=== PATIENT | female | born 1995 | race Caucasian/White ===

== ENCOUNTER 2025-05-29 14:35 | Emergency (ER) | payer MEDICAID, OTHER ==
[2025-05-29 15:28] LABS: #Basophils 0.07 10x3/uL (0.0-0.2); #Eosinophils 0.28 10x3/uL (0.0-0.5); #Monocytes 0.71 10x3/uL (0.0-1.1); #Neutrophils 7.30 10x3/uL (1.5-8.4); %Basophils 0.6 % (0.0-2.0); %Eosinophils 2.4 % (0.0-6.0); %Lymphocytes 26.6 % (18.0-47.0); %Monocytes 6.2 % (0.0-10.0); %Neutrophils 63.9 % (40.0-75.0); Hematocrit 39.3 % (34.9-44.5); Hemoglobin 13.2 g/dL (12.0-15.5); Mean Corpuscular Hemoglobin 29.8 pg (27.0-33.0); Mean Corpuscular Volume 88.7 fL (81.6-98.3); Platelet Count 360 10x3/uL (150-450); Red Blood Cell (RBC) Count 4.43 10x6/uL (3.90-5.03); White Blood Cell (WBC) Count 11.45 10x3/uL (3.5-10.5)
[2025-05-29 15:58] LABS: ALT (SGPT) 20 U/L (Less than 34); AST (SGOT) 17 U/L (11-34); Albumin 4.4 g/dL (3.1-4.5); Alkaline Phosphatase 58 U/L (40-110); Anion Gap 11 mmol/L (10-20); BUN (Urea Nitrogen) 7 mg/dL (7.0-18.7); Bilirubin, Total 0.2 mg/dL (0.3-1.2); Calc. Creatinine Clearance 0 mL/min (70-130); Calcium 9.0 mg/dL (7.8-10.44); Carbon Dioxide 24 mmol/L (22-29); Chloride 107 mmol/L (98-107); Globulin 2.7 g/dL (2.4-3.5); Glucose 100 mg/dL (70-105); Potassium 4.4 mmol/L (3.5-5.1); Sodium 138 mmol/L (136-145)
[2025-05-29 17:44] LABS: Glucose, Urine (Dipstick) Normal (Negative); Leukocyte Negative (Negative); Protein, Urine (Dipstick) Negative (Neg-Trace); Specific Gravity, Urine 1.020 (1.005-1.030)
[2025-05-29 17:57] LABS: Bacteria/HPF None Seen HPF (None Seen); CAUTI Indications for Culture Pregnancy; RBC/HPF None Seen HPF (0-3); WBC/HPF 0-3 HPF (0-3)
[2025-05-29 17:58] LABS: Urine Culture Reflex Yes Yes
[2025-05-30 01:00] LABS: Chlamydia by PCR, Vaginal Swab Not Detected (NotDetected); GC by PCR, Vaginal Swab Not Detected (NotDetected)
== END 2025-05-29 17:53 | disposition home or self-care (01) ==
LOC: CSHERS 14:35
DX: O20.9 Hemorrhage in early pregnancy, unspecified (principal); O99.891 Other specified diseases and conditions complicating pregnancy; R82.71 Bacteriuria; Z3A.00 Weeks of gestation of pregnancy not specified
CPT/HCPCS: 76856; 80053; 81001; 84702; 85025; 86850; 86900; 86901; 87086; 87480; 87491; 87510; 87591; 87660

== ENCOUNTER 2025-05-30 08:20 | Emergency (ER) | payer OTHER | END 2025-05-30 08:57 | disposition home or self-care (01) | LOC: CSHERS 08:20 | DX: O20.0 Threatened abortion (principal); F17.210 Nicotine dependence, cigarettes, uncomplicated; Z3A.13 13 weeks gestation of pregnancy | CPT/HCPCS: 99283 ==